=== PATIENT | female | born 1955 | race African-American/Black ===

== ENCOUNTER 2016-09-06 21:24 | Emergency (ER) | payer OTHER ==
[~2016-09-06] VITALS: Ht 167.6 cm; Wt 76.2 kg
[~2016-09-06 21:24] MED LIST: ALLEGRA-D 121 TABLET PO; LIPITOR40 MG PO; NAPROSYN500 MG PO; NORCO 5/3251 TABLET PO; PERCOCET 5/31 TABLET PO; PREDNISONE10 MG PO; PROTONIX40 MG PO; TRAMADOL HCL50 MG PO
[2016-09-06 22:15] LABS: HEMATOCRIT 27.6 % (36.0-46.0); MCH 23.9 PG (29.0-34.0); MCHC 30.4 G/DL (30.0-36.0); MCV 78.4 FL (83-99); MEAN PLAT.VOLUME 9.6 uM^3 (9.5-12.4); PLATELET COUNT 455 K/uL (156-360); RBC DIS.WIDTH-CV 14.9 % (11.8-14.6); RBC DIS.WIDTH-SD 41.2 % (39-53); RED BLOOD COUNT 3.52 M/uL (3.80-5.20); WHITE BLOOD COUNT 8.7 K/uL (4.1-10.2)
[2016-09-06 22:16] LABS: EOSINOPHIL (%) 0.2 % (0-5); IMMATURE GRANULOCYTE (%) 0.1 % (0.0-0.7); IMMATURE GRANULOCYTE COUNT 0.1 K/uL; LYMPHOCYTE COUNT 1.6 K/uL (1.0-2.8); MONOCYTE (%) 12.3 % (3-12); MONOCYTE COUNT 1.1 K/uL (0-0.8); NEUTROPHIL (%) 68.6 % (45-76)
[2016-09-06 22:25] LABS: CHLORIDE 111 mEq/L (99-109); POTASSIUM 3.8 mEq/L (3.7-5.4); SODIUM 139 mEq/L (136-147)
[2016-09-06 22:27] LABS: GLUCOSE 104 mg/dL (70-99)
[2016-09-06 22:28] LABS: ANION GAP 7 MEQ/L (2-14)
[2016-09-06 22:31] LABS: GFR ESTIMATE (CALCULATED) > 59 mL/min/
[2016-09-06 22:32] LABS: UREA NITROGEN (BUN) 10 mg/dL (9-23)
[2016-09-06 22:58] LABS: INFLUENZA A VIRAL ANTIGEN NEGATIVE; INFLUENZA B VIRAL ANTIGEN NEGATIVE
[2016-09-07] MEDS ORDERED: LEVAQUIN500 MG PO (01:59)
[2016-09-07 02:13] VITALS: BP 114/76
== END 2016-09-07 02:14 | disposition home or self-care (01) ==
LOC: EME 21:24
PROVIDERS: Emergency Medicine
DX: J18.9 Pneumonia, unspecified organism (principal); M25.512 Pain in left shoulder; D64.9 Anemia, unspecified
CPT/HCPCS: 71010; 73030; 73130; 80048; 85025; 87502; 99281; 99284

== ENCOUNTER → 2016-09-25 | Outpatient (CLI) | payer OTHER ==
[~2016-09-25] MED LIST changes: +LEVAQUIN500 MG PO
== END | disposition home or self-care (01) ==
LOC: RAD 15:31
DX: Z87.01 Personal history of pneumonia (recurrent) (principal)
CPT/HCPCS: 71020

== ENCOUNTER 2016-12-19 14:48 | Emergency (ER) | payer OTHER ==
[~2016-12-19] VITALS: Ht 167.6 cm; Wt 76.5 kg
[2016-12-19] MEDS ORDERED: PREDNISONE50 MG PO (16:39)
[2016-12-19] MEDS ORDERED: TRAMADOL HCL50 MG PO (16:39)
[2016-12-19] MEDS ORDERED: PEPCID20 MG PO (16:40)
[2016-12-19 17:27] VITALS: BP 134/73
== END 2016-12-19 17:28 | disposition home or self-care (01) ==
LOC: EME 14:48
DX: M79.641 Pain in right hand (principal); M79.642 Pain in left hand; E78.5 Hyperlipidemia, unspecified
CPT/HCPCS: 99281; 99283; J7512

== ENCOUNTER 2016-12-31 14:28 | Emergency (ER) | payer OTHER ==
[~2016-12-31] VITALS: Ht 167.6 cm; Wt 76.0 kg
[~2016-12-31 14:28] MED LIST changes: +PEPCID20 MG PO; +PREDNISONE50 MG PO
[2016-12-31 14:36] VITALS: BP 140/85
[2016-12-31] MEDS ORDERED: NORCO 5/3251 TABLET PO (15:44)
[2016-12-31] MEDS ORDERED: MOBIC15 MG PO (15:44)
== END 2016-12-31 16:02 | disposition home or self-care (01) ==
LOC: EME 14:28
DX: M13.842 Other specified arthritis, left hand (principal); M13.841 Other specified arthritis, right hand; M25.531 Pain in right wrist; M25.532 Pain in left wrist; G89.29 Other chronic pain
CPT/HCPCS: 99281; 99282

== ENCOUNTER 2017-01-20 12:38 | Emergency (ER) | payer OTHER ==
[~2017-01-20] VITALS: Ht 167.6 cm; Wt 76.4 kg
[~2017-01-20 12:38] MED LIST changes: +MOBIC15 MG PO
[2017-01-20 14:23] LABS: HEMATOCRIT 32.7 % (36.0-46.0); MCH 25.6 PG (29.0-34.0); MCHC 31.5 G/DL (30.0-36.0); MCV 81.1 FL (83-99); MEAN PLAT.VOLUME 8.1 uM^3 (9.5-12.4); PLATELET COUNT 444 K/uL (156-360); RBC DIS.WIDTH-SD 58.9 % (39-53); RED BLOOD COUNT 4.03 M/uL (3.80-5.20); WHITE BLOOD COUNT 7.1 K/uL (4.1-10.2)
[2017-01-20 14:34] LABS: CHLORIDE 113 mEq/L (99-109); POTASSIUM 4.3 mEq/L (3.7-5.4); SODIUM 143 mEq/L (136-147)
[2017-01-20 14:36] LABS: GLUCOSE 97 mg/dL (70-99)
[2017-01-20 14:37] LABS: ANION GAP 8 MEQ/L (2-14)
[2017-01-20 14:40] LABS: GFR ESTIMATE (CALCULATED) > 59 mL/min/
[2017-01-20 14:41] LABS: UREA NITROGEN (BUN) 12 mg/dL (9-23)
[2017-01-20 14:59] LABS: TROP-I INTERPRETATION NEGATIVE; TROPONIN-I < 0.01 ng/mL (0.0-0.30)
[2017-01-20 15:51] VITALS: BP 142/87
== END 2017-01-20 15:56 | disposition home or self-care (01) ==
LOC: EME 12:38
PROVIDERS: Emergency Medicine
DX: M13.842 Other specified arthritis, left hand (principal); M13.841 Other specified arthritis, right hand; M25.512 Pain in left shoulder; M54.2 Cervicalgia; E78.5 Hyperlipidemia, unspecified
CPT/HCPCS: 80048; 82330; 84484; 85027; 93005; 99281; 99284; J1885